=== PATIENT | female | born 1995 | race Caucasian/White ===

== ENCOUNTER 2017-03-04 15:02 | Inpatient (IN) | payer MEDICAID, OTHER ==
[~2017-03-04] VITALS: Ht 165.1 cm; Wt 159.0 kg
[2017-03-04 16:39] LABS: MEAN CORPUSCULAR HEMOGLOBIN 30.4 pg (27.0-33.0); RED CELL DISTRIBUTION WIDTH 13.1 % (11.5-14.5)
[2017-03-04 16:47] LABS: CONTROL LINE HCG INT CTR LINE PRESENT
[2017-03-04 16:57] LABS: METHADONE URINE NEGATIVE (NEGATIVE)
[2017-03-04 17:05] LABS: ALBUMIN/GLOBULIN RATIO 1.18 (1.00-1.93); ALKALINE PHOSPHATASE 114 U/L (45-117); ALT/SGPT 23 U/L (12-78); ANION GAP 8 MEQ/L (8-16); AST/SGOT 19 U/L (15-37); BILIRUBIN,DIRECT 0.1 MG/DL (0.0-0.2); BILIRUBIN,TOTAL 0.3 MG/DL (0.2-1.0); BLOOD UREA NITROGEN 13 MG/DL (7-18); CALCIUM LEVEL 8.8 MG/DL (8.5-10.1); CARBON DIOXIDE LEVEL 27 MEQ/L (21-32); CHLORIDE LEVEL 106 MEQ/L (98-107); CREATININE FOR GFR 0.98 MG/DL (0.55-1.02); GLUCOSE, FASTING 90 MG/DL (70-105); POTASSIUM SERUM 3.7 MEQ/L (3.5-5.1); SODIUM LEVEL 141 MEQ/L (136-145); TOTAL PROTEIN 7.4 GM/DL (6.4-8.2)
[2017-03-04 21:05] VITALS: BP 131/67
[2017-03-04] MEDS ORDERED: MAALOX 30 ML SUSP *UDC PO PRN (23:45)
[2017-03-04] MEDS ORDERED: MOM 30ML SUSPENSION UDC PO PRN (23:45)
[2017-03-04] MEDS ORDERED: ACETAMINOPHEN TAB 650MG DOSE (2X325MG) PO PRN (23:45)
[2017-03-05 06:40] VITALS: BP 123/74
[2017-03-05] MEDS: NICOTINE 21MG/24HR 1 EA TRANSDERMAL TD SCH (09:00)
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
[2017-03-05 18:00] VITALS: BP 110/74
[2017-03-05] MEDS: traZODone 50 MG TAB PO SCH (21:22)
[2017-03-06 06:42] VITALS: BP 139/79
[2017-03-06] MEDS: NICOTINE 21MG/24HR 1 EA TRANSDERMAL TD SCH (08:13)
[2017-03-06] MEDS: FLUoxetine 20 MG CAP PO SCH (08:15)
--- NOTE | 2017-03-06 10:54 | HPEPDOC ---
Medical History and Physical Date of Admission Mar 04, 2017 at 19:16 History and Physical PCP: [facility] ATTENDING: Dr. Mark Ortez HPI: 21yoF admitted to [facility] for unspecified depressive disorder, being medically examined today. No acute medical complaints today. Denies any fevers, chills, weakness, fatigue, CASPER, CP, SOB, cough, palpitations, abdominal pain, N/V /D or changes in bowel or bladder habits. PMHx: Depression ADD Chronic back pain/degenerative disc disease PCOS BMI 58.3 PSHX: Denies SOCHX: Resides in: [facility] Marital Status: Single Kids: None Employment: Unemployed Tobacco use: One half pack per day ETOH: One bottle of wine every 8 months Illicit Drugs: Marijuana 1 or 2 times IV Drug Use: Denies Tattoos done unprofessionally: Denies FAMHX: Mother: Alive, history of depression, bipolar disorder, PCOS Father: Alive, bipolar, depression Siblings: One sister, half brother Alive, bipolar disorder, PTSD, OCD, ADD Children: None Unexpected deaths due to medical reasons: None. ROS: As noted in HPI, otherwise 11pt ROS of systems reviewed and remarkable only for LMP 4/04/10 PE: GEN: 21 yo F, appears stated age. Well-nourished, well developed. No acute distress. Alert and oriented x 3. Pleasant, interactive. HEENT: Normocephalic, atraumatic. Pupils are equal, round, and reactive to light. Extraocular movements are intact. No nystagmus appreciated. Sclera are nonicteric. Conjunctiva without injection. Nose midline. Nasal turbinates without bogginess. EACs both patent BL. TMs both visualized and rivera with good cone of light, no bulging or erythema. No facial asymmetry. Moist mucous membranes. Dentition fair. Pharynx pink and moist, no cobblestoning. Neck supple , trachea midline. No lymphadenopathy or thyromegaly appreciated. CHEST: Regular rate and rhythm, +S1, +S2 LUNGS: Clear to auscultation bilaterally. No wheezes, rales, or rhonchi. Breathing appears symmetric and easy. Patient is speaking in full sentences. No accessory muscle use. ABD: Round, soft, non-tender, non-distended. +Bowel sounds throughout. No rebound or guarding. No costovertebral angle tenderness. EXT: Pulses 2+ bilaterally dorsalis pedis and radial. No lower extremity edema appreciated. SKIN: [place], dry, warm. Capillary refill <2sec. No rashes. NEURO: Alert and oriented x 3. Cranial nerves III-XII are intact. No focal deficits appreciated. EKG: Pending. A&P: 21yoF admitted to [facility] for unspecified depressive disorder 1. Psych. Plan per Psychiatry. Obtain baseline EKG to assure the safety of psychiatric medications as they can prolong the QT interval. 2. Nicotine dependence. Patch available. 3. Chronic low back pain. Tylenol as needed. 4. Follow up with PCP on discharge. 5. Staff member Romina LUO present throughout exam. Vital Signs Vital Signs Date Time Temp Pulse Resp B/P Pulse Ox O2 Delivery O2 Flow Rate FiO2 03/06/17 06:42 98.1 48 20 139/79 03/04/17 21:05 Room Air 03/04/17 21:05 98 Laboratory Data Labs 24H Item Value Date Time White Blood Count 9.0 K/mm3 03/04/17 1601 Red Blood Count 4.47 M/mm3 03/04/17 1601 Hemoglobin 13.6 g/dl 03/04/17 1601 Hematocrit 41.1 % 03/04/17 1601 Mean Corpuscular Volume 92.0 fl 03/04/17 1601 Mean Corpuscular Hemoglobin 30.4 pg 03/04/17 1601 Mean Corpuscular Hemoglobin Concent 33.0 g/dl 03/04/17 1601 Red Cell Distribution Width 13.1 % 03/04/17 1601 Platelet Count 319 k/mm3 03/04/17 1601 Sodium Level 141 MEQ/L 03/04/17 1601 Potassium Level 3.7 MEQ/L 03/04/17 1601 Chloride Level 106 MEQ/L 03/04/17 1601 Carbon Dioxide Level 27 MEQ/L 03/04/17 1601 Anion Gap 8 MEQ/L 03/04/17 1601 Blood Urea Nitrogen 13 MG/DL 03/04/17 1601 Creatinine 0.98 MG/DL 03/04/17 1601 Fasting Glucose 90 MG/DL 03/04/17 1601 Calcium Level 8.8 MG/DL 03/04/17 1601 Total Bilirubin 0.3 MG/DL 03/04/17 1601 Direct Bilirubin 0.1 MG/DL 03/04/17 1601 Aspartate Amino Transf (AST/SGOT) 19 U/L 03/04/17 1601 Alanine Aminotransferase (ALT/SGPT) 23 U/L 03/04/17 1601 Alkaline Phosphatase 114 U/L 03/04/17 1601 Total Protein 7.4 GM/DL 03/04/17 1601 Albumin 4.0 GM/DL 03/04/17 1601 Albumin/Globulin Ratio 1.18 03/04/17 1601 Thyroid Stimulating Hormone (TSH) 2.590 uIU/ML 03/04/17 1601 Human Chorionic Gonadotropin, Qual NEGATIVE 03/04/17 1601 Salicylates Level 2.3 MG/DL L 03/04/17 1601 Urine Opiates Screen NEGATIVE 03/04/17 1601 Urine Methadone Screen NEGATIVE 03/04/17 1601 Acetaminophen Level < 2.0 UG/ML L 03/04/17 1601 Urine Barbiturates Screen NEGATIVE 03/04/17 1601 Urine Phencyclidine Screen NEGATIVE 03/04/17 1601 Urine Amphetamines Screen NEGATIVE 03/04/17 1601 Urine Benzodiazepines Screen NEGATIVE 03/04/17 1601 Urine Cocaine Metabolite Screen NEGATIVE 03/04/17 1601 Urine Cannabinoids Screen POSITIVE H 03/04/17 1601 Ethyl Alcohol Level < 0.003 % 03/04/17 1601 Home Medications No Active Prescriptions or Reported Meds Allergies Coded Allergies: Latex (Verified Allergy, Unknown, 03/04/17) [place] Mar 06, 2017 10:54
--- NOTE | 2017-03-06 19:53 | IPNPDOC ---
[facility] Progress Note Progress Note DATE OF SERVICE: 03/06/17 INTERVAL HISTORY: Medication Side effects: None reported Behavior: She is being interacting with other patients and staff, compliant with medications and attendance to groups, she hasn't been disruptive neither aggressive. Group Attendance: Has been attending meditation and yoga groups Psychiatric Symptom change: Her mood and affect have improved VITAL SIGNS: See below. NEW TEST RESULTS: See below CURRENT MEDICATIONS: See below. MENTAL STATUS EXAMINATION: General: Dressed in personal clothes, good eye contact, good rapport Speech: Normal Thought processes:Linear, coherent Thought content: Occasional suicidal ideation ,negative for delusional thoughts , negative for auditory or visual hallucinations, negative for obsessions Abstract reasoning, and computation: Fair Description of associations:No loosening of associations Description of abnormal or psychotic thoughts: No delusional thoughts, no hallucinations no response to internal stimuli and no thought insertion Judgment: Improving Insight: Improving Orientation: Oriented 3 Recent and remote memory: Intact Attention span and concentration: Fair Fund of knowledge: Fair Mood: "I feel much better, I couldn't sleep last night" Affect: Less depressed and anxious DIAGNOSES: 1. Major depressive disorder, chronic, severe with suicidal ideation. 2. PTSD. 3. Borderline personality disorder. ASSESSMENT: The patient was in a brighter mood today, and she said that her sleep had improved and was happy about that because she is aware that the lack of sleep makes her irritable and depressed. She feels that she is doing better now that she has started taking her medications. She is goal oriented and she wants to get better. MANAGEMENT PLAN: Medications: Prozac 20 mg by mouth daily and trazodone 50 mg by mouth when necessary daily at bedtime Psychotherapy: She is attending groups and receiving psychotherapy Social: Interacting with staff and other patients, once she gets stabilized she will be discharged and we have will be able to go back to her family. Misc: Motivated and engaged in her treatment Disposition: Inpatient mental health unit while she becomes stable TIME SPENT: 15 minutes. Vital Signs Vital Signs Date Time Temp Pulse Resp B/P Pulse Ox O2 Delivery O2 Flow Rate FiO2 03/06/17 06:42 98.1 48 20 139/79 03/04/17 21:05 Room Air 03/04/17 21:05 98 Current Medications Current Medications Acetaminophen (Tylenol Tab) 650 mg Q6HP PRN PO HEADACHE or DISCOMFORT; Start at 23:45; Stop 04/03/17 at 23:44 Al Hydrox/Mg Hydrox/Simethicone (Mylanta) 30 ml Q4HP PRN PO HEARTBURN/ INDIGESTION; Start 03/04/17 at 23:45; Stop 04/03/17 at 23:44 Fluoxetine HCl (PROzac) 20 mg QAM PO Last administered on 03/06/17t 08:15; Start 03/06/17 at 09:00; Stop 04/05/17 at 08:59 Home Med (Med Rec Complete!) ASDIRECTED XX ; Start 03/04/17 at 20:00; Stop 09/10 at 20:00; Status DC Magnesium Hydroxide (Milk Of Magnesia) 30 ml DAILYPRN PRN PO CONSTIPATION; Start 03/04/17 at 23:45; Stop 04/03/17 at 23:44 Nicotine (Nicoderm Cq 21mg) 1 patch DAILY TD ; Start 03/05/17 at 09:00; Stop 10/11 at 08:59 Trazodone HCl (Desyrel) 50 mg QHS PO Last administered on 03/05/17t 21:22; Start 03/05/17 at 21:00; Stop 04/04/17 at 20:59 Allergies Coded Allergies: Latex (Verified Allergy, Unknown, 03/04/17) JOSÉ LUIS BARBER MD Mar 06, 2017 19:53
[2017-03-06] MEDS: traZODone 50 MG TAB PO SCH (21:38)
[2017-03-07 06:32] VITALS: BP 134/76
[2017-03-07] MEDS: NICOTINE 21MG/24HR 1 EA TRANSDERMAL TD SCH (08:07)
[2017-03-07] MEDS: FLUoxetine 20 MG CAP PO SCH (08:07)
--- NOTE | 2017-03-07 12:44 | ECGEPIP ---
Stationary ECG Study [facility] Test Date: 2017-03-06 Pat Name: CORY SARABIA Department: Room: [place] [address] Gender: F Criminal Analyst: EMILIE : 1995 Requested By: [place] Order Number: [id number] Reading MD: Bairon Shelley Measurements Intervals [place] Rate: 60 P: 23 NH: 137 QRS: 61 QRSD: 98 T: 36 QT: 389 QTc: 390 Interpretive Statements SINUS RHYTHM Normal Electronically Signed On 03-07-2017 12:44:28 EDT by Bairon Shelley
--- NOTE | 2017-03-07 16:49 | IPNPDOC ---
[facility] Progress Note Progress Note INTERVAL HISTORY: Medication Side effects: No negative side effects have been reported Behavior: Good attitude, cooperative, friendly, sociable Group Attendance: Has been attending groups regularly Psychiatric Symptom change: Her mood and affect are brighter, less depressed. She has been able to sleep 8-9 hours. VITAL SIGNS: See below. NEW TEST RESULTS: See below CURRENT MEDICATIONS: See below. MENTAL STATUS EXAMINATION: General: Alert, cooperative, good eye contact, good rapport, good hygiene Speech: Normal, not circumstantial, no tangential Thought processes: Normal, linear, coherent Thought content: Negative for suicidal ideation, homicidal ideation, delusional thoughts, hallucinations, obsessions Abstract reasoning, and computation: Fair Description of associations: No loosening of associations Description of abnormal or psychotic thoughts: Absent Judgment: Improving Insight: Improving Orientation: Oriented 3 Recent and remote memory: Intact Attention span and concentration: Fair Fund of knowledge: Fair Mood: I feel much better and I was able to sleep Affect: Less depressed and anxious DIAGNOSES: 1. Major depressive disorder, moderate without suicidal ideation. 2. Posttraumatic stress disorder. 3. And borderline personality. ASSESSMENT: The patient is motivated and she has improved since her admission. She is goal oriented and has plans for the future. She will be able to be discharged home by the end of the week. MANAGEMENT PLAN: Medications: Prozac 20 mg by mouth every morning and trazodone 50 mg by mouth daily at bedtime Psychotherapy: Accidents groups regularly Social: She will live with her family and will be in touch with friends. Misc: None Disposition: Patient will be discharged home to her family if they're able to have a meeting with the discharge planners and they have. Patient is stable, not suicidal, not psychotic, not homicidal. TIME SPENT: 15 minutes.DATE OF SERVICE: VITAL SIGNS: See below. Vital Signs Vital Signs Date Time Temp Pulse Resp B/P Pulse Ox O2 Delivery O2 Flow Rate FiO2 03/07/17 06:32 98.2 98 18 134/76 Room Air 03/04/17 21:05 98 Current Medications Current Medications Acetaminophen (Tylenol Tab) 650 mg Q6HP PRN PO HEADACHE or DISCOMFORT; Start at 23:45; Stop 04/03/17 at 23:44 Al Hydrox/Mg Hydrox/Simethicone (Mylanta) 30 ml Q4HP PRN PO HEARTBURN/ INDIGESTION; Start 03/04/17 at 23:45; Stop 04/03/17 at 23:44 Fluoxetine HCl (PROzac) 20 mg QAM PO Last administered on 03/07/17 08:07; Start 03/06/17 at 09:00; Stop 04/05/17 at 08:59 Home Med (Med Rec Complete!) ASDIRECTED XX ; Start 03/04/17 at 20:00; Stop 09/10 at 20:00; Status DC Magnesium Hydroxide (Milk Of Magnesia) 30 ml DAILYPRN PRN PO CONSTIPATION; Start 03/04/17 at 23:45; Stop 04/03/17 at 23:44 Nicotine (Nicoderm Cq 21mg) 1 patch DAILY TD ; Start 03/05/17 at 09:00; Stop 10/11 at 08:59 Trazodone HCl (Desyrel) 50 mg QHS PO Last administered on 03/06/17 21:38; Start 03/05/17 at 21:00; Stop 04/04/17 at 20:59 Allergies Coded Allergies: Latex (Verified Allergy, Unknown, 03/04/17) JOSÉ LUIS BARBER MD Mar 07, 2017 16:49
[2017-03-07 18:00] VITALS: BP 146/88
[2017-03-07] MEDS: traZODone 50 MG TAB PO SCH (22:17)
[2017-03-08 05:55] VITALS: BP 134/69
[2017-03-08] MEDS: FLUoxetine 20 MG CAP PO SCH (08:06)
[2017-03-08] MEDS: NICOTINE 21MG/24HR 1 EA TRANSDERMAL TD SCH (08:07)
[2017-03-08] MEDS ORDERED: TRAZO50TA PO (09:31)
[2017-03-08] MEDS ORDERED: FLUO20CA9 PO (09:31)
--- NOTE | 2017-03-08 09:47 | DS.PDOC ---
[facility] Discharge Summary Discharge Summary DATE OF ADMISSION: Mar 04, 2017 at 19:16 DATE OF DISCHARGE: DISCHARGE DIAGNOSES: 1. Major depressive disorder unspecified, without suicidal ideation 2. PTSD 3. Borderline personality disorder. REASON FOR ADMISSION: The patient states that she has been out of medication for 4 months and that she felt increasingly depressed, unable to sleep well, sad , tearful, with low levels of energy, lack of interest, anhedonia difficulties concentrating, psychomotor retardation and suicidal ideation. She was at risk for suicide, she has tried to kill herself before in the last time she tried to jump off a bridge, she stated this was the thought that was on her mind, jumping off a bridge if she continued to feel very depressed.. CONSULTANTS INVOLVED: None TREATMENT AND PROGRESS ON THE UNIT :, Has been treated with 20 mg of fluoxetine every day since she was admitted for depression and she has been taking trazodone 50 mg at bedtime for insomnia. She has improved recently on those medications and now she states that she can sleep better and feels better, because she feels calmer, has more energy, has more interest in mingling with people, socializing and she feels that her mind is getting clear and she is able to focus and concentrate better. She has denies suicidal ideation and has denied having thoughts of hurting herself in any other possible weight, like cutting. HOSPITAL COURSE: She has responded to medications fairly well, she has attended groups especially the medication and a yoga group but she also has attended process groups. She is very interested and motivated in getting better and overcoming her psychiatric problems. She states that she wants to go back to school, she is goal oriented and has plans for her future. She has been seen in a brighter mood, she is more sociable and she is able to verbalize quite clearly her emotions. DISCHARGE ASSESSMENT: She is stable upon discharge, she is not at risk for suicide or harming herself in any other possible way. She has no delusions, no hallucinations no obsessions and no aggressiveness towards others. MENTAL STATUS EXAMINATION ON DISCHARGE: Patient is a 21-year old female, who is alert, cooperative with interview, with good eye contact and will report. Speech is normal. Language skills are fair. Thought processes including: Linear, coherent, logical. Thought content: Negative for suicidal ideation, negative for homicidal ideation , negative for delusional thoughts, hallucinations and obsessions. She doesn't have a suicidal plan not homicidal at the time of the discharge. Abstract reasoning, and computation: Fairly good. Description of associations: There is no loosening of associations. Description of abnormal or psychotic thoughts: There is no psychotic thoughts present. Judgment: Improved. Insight: Improved. Orientation to oriented 3. Recent and remote memory: Intact. Attention span and concentration: Good. Language: Fluid, well structured with fairly good vocabulary. Fund of knowledge: Good. Mood: "I feel much better, I've been able to sleep and I feel that I'm less depressed". Affect: Brighter. MEDICATIONS ON DISCHARGE: -Prozac 20 mg for depression and anxiety. -Trazodone 50 mg for insomnia PLAN/FOLLOWUP ARRANGEMENTS: The patient will go back to her family where she will be taken to an outpatient treatment center where she will continue to receive psychotherapy and psychiatric medications. The amount of time spent in the coordination of care for this patient was approximately 40 minutes Vital Signs/I&Os Vital Signs Date Time Temp Pulse Resp B/P Pulse Ox O2 Delivery O2 Flow Rate FiO2 03/08/17 05:55 97.2 70 18 134/69 Room Air 03/04/17 21:05 98 Medications Scheduled Fluoxetine Hcl (Fluoxetine HCl) 20 Mg Cap #10 20 MG PO QAM MOOD Trazodone HCl (Trazodone HCl) 50 Mg Tab #10 50 MG PO QHS ANXIETY/AGITATION Allergies Coded Allergies: Latex (Verified Allergy, Unknown, 03/04/17) JOSÉ LUIS BARBER MD Mar 08, 2017 09:47
[2017-03-08] MEDS ORDERED: NICO21PAT TD (09:51)
== END 2017-03-08 12:00 | disposition home or self-care (01) | DRG 881 ==
LOC: M ED 16:22 → M ED INP 19:16 → M PSY 21:12
PROVIDERS: ADMIT Psychiatry & Neurology Psychiatry; ATTEND Psychiatry & Neurology Psychiatry
DX: F32.9 Major depressive disorder, single episode, unspecified (principal); F43.10 Post-traumatic stress disorder, unspecified; F60.3 Borderline personality disorder; Z62.810 Personal history of physical and sexual abuse in childhood; Z62.811 Personal history of psychological abuse in childhood; Z91.040 Latex allergy status; F17.210 Nicotine dependence, cigarettes, uncomplicated; M54.5 Low back pain; E28.2 Polycystic ovarian syndrome; Z91.5 Personal history of self-harm; Z81.8 Family history of other mental and behavioral disorders

== ENCOUNTER → 2017-12-27 | Outpatient (CLI) | payer OTHER ==
[2017-12-27 13:47] LABS: BASO # 0.1 10^3/uL (0.0-0.2); BASO % 0.5 % (0.0-1.0); EOS # 0.1 10^3/uL (0.0-0.50); EOS % 1.2 % (0.0-3.0); HEMATOCRIT 42.4 % (36.0-47.0); HEMOGLOBIN 14.3 g/dl (12.0-16.0); IMMATURE GRANULOCYTE # 0.1 10^3/uL (0-0); IMMATURE GRANULOCYTE % 0.4 % (0-0); LYMPH # 2.4 10^3/uL (1.5-6.5); LYMPH % 19.7 % (24.0-44.0); MEAN CORPUSCULAR HEMOGLOBIN 29.9 pg (27.0-33.0); MEAN CORPUSCULAR HGB CONC 33.7 g/dl (32.0-36.5); MEAN CORPUSCULAR VOLUME 88.7 fl (80.0-96.0); MONO # 0.8 10^3/uL (0.0-0.8); MONO % 6.6 % (0.0-5.0); NEUTROPHILS # 8.6 10^3/uL (1.8-7.7); NEUTROPHILS % 71.6 % (36.0-66.0); PLATELET COUNT, AUTOMATED 338 10^3/uL (150-450); RED BLOOD COUNT 4.78 10^6/uL (4.00-5.40); RED CELL DISTRIBUTION WIDTH 13.4 % (11.5-14.5)
[2017-12-27 14:55] LABS: RUBELLA IgG QUALITATIVE IMMUNE (IMMUNE)
[2017-12-27 15:03] LABS: HBsAg Prenatal NEGATIVE (NEGATIVE)
[2017-12-27 15:21] LABS: CHLAMYDIA DNA AMPLIFICATION NEGATIVE (NEGATIVE); GC DNA AMPLIFICATION NEGATIVE (NEGATIVE)
[2017-12-27 15:23] LABS: HEPATITIS C VIRUS ABY INDEX < 0.0 INDEX (<0.8)
[2017-12-27 15:24] LABS: HIV 1&2 SCREEN CENTAUR NEGATIVE (NEGATIVE)
== END ==
LOC: M SMT 11:57
DX: Z34.82 Encounter for supervision of other normal pregnancy, second trimester (principal)
CPT/HCPCS: 86762

== ENCOUNTER → 2018-02-04 | Outpatient (CLI) | payer MEDICAID ==
[2018-02-04 19:17] LABS: HEMATOCRIT 37.3 % (36.0-47.0); HEMOGLOBIN 12.4 g/dl (12.0-16.0); MEAN CORPUSCULAR HGB CONC 33.2 g/dl (32.0-36.5); MEAN CORPUSCULAR VOLUME 90.1 fl (80.0-96.0); PLATELET COUNT, AUTOMATED 323 10^3/uL (150-450); RED BLOOD COUNT 4.14 10^6/uL (4.00-5.40); RED CELL DISTRIBUTION WIDTH 14.2 % (11.5-14.5); WHITE BLOOD COUNT 9.9 10^3/uL (4.0-10.0)
[2018-02-04 19:49] LABS: ALBUMIN 3.1 GM/DL (3.2-5.2); ALBUMIN/GLOBULIN RATIO 0.94 (1.00-1.93); ALKALINE PHOSPHATASE 98 U/L (45-117); ALT/SGPT 61 U/L (12-78); ANION GAP 9 MEQ/L (8-16); AST/SGOT 31 U/L (7-37); BILIRUBIN,TOTAL 0.2 MG/DL (0.2-1.0); BLOOD UREA NITROGEN 8 MG/DL (7-18); CALCIUM LEVEL 8.3 MG/DL (8.5-10.1); CARBON DIOXIDE LEVEL 25 MEQ/L (21-32); CHLORIDE LEVEL 107 MEQ/L (98-107); CREATININE FOR GFR 0.63 MG/DL (0.55-1.30); FREE THYROXINE INDEX 4.2 % (1.3-4.8); GLUCOSE, FASTING 68 MG/DL (70-100); POTASSIUM SERUM 3.9 MEQ/L (3.5-5.1); SODIUM LEVEL 141 MEQ/L (136-145); T UPTAKE 25 % (30-39); THYROXINE (T4) 16.6 UG/DL (6.0-11.6); TOTAL PROTEIN 6.4 GM/DL (6.4-8.2)
[2018-02-04 22:01] LABS: CHLAMYDIA DNA AMPLIFICATION NEGATIVE (NEGATIVE); GC DNA AMPLIFICATION NEGATIVE (NEGATIVE)
== END ==
LOC: M SMT 14:55
DX: R53.83 Other fatigue (principal)
CPT/HCPCS: 84443

== ENCOUNTER 2018-03-29 02:23 | Outpatient (CLI) | payer OTHER | END 2018-03-29 05:23 | disposition home or self-care (01) | LOC: M LDO 02:23 | DX: O47.03 False labor before 37 completed weeks of gestation, third trimester (principal); Z3A.27 27 weeks gestation of pregnancy | CPT/HCPCS: 59025 ==

== ENCOUNTER → 2018-04-08 | Outpatient (CLI) | payer OTHER ==
[2018-04-08 17:57] LABS: HEMATOCRIT 34.8 % (36.0-47.0); HEMOGLOBIN 11.3 g/dl (12.0-15.5); MEAN CORPUSCULAR HEMOGLOBIN 30.4 pg (27.0-33.0); MEAN CORPUSCULAR HGB CONC 32.5 g/dl (32.0-36.5); MEAN CORPUSCULAR VOLUME 93.5 fl (80.0-96.0); PLATELET COUNT, AUTOMATED 302 10^3/uL (150-450); RED BLOOD COUNT 3.72 10^6/uL (4.00-5.40); RED CELL DISTRIBUTION WIDTH 13.6 % (11.5-14.5); WHITE BLOOD COUNT 14.5 10^3/uL (4.0-10.0)
[2018-04-08 18:28] LABS: GLUCOSE CHALLENGE TEST 1 HOUR 96 MG/DL (LESS THAN 140)
== END ==
LOC: M SMT 13:30
DX: Z34.82 Encounter for supervision of other normal pregnancy, second trimester (principal)
CPT/HCPCS: 82950

== ENCOUNTER 2018-04-16 16:27 | Outpatient (CLI) | payer OTHER | END 2018-04-16 19:20 | disposition home or self-care (01) | LOC: M LDO 16:27 | DX: O47.03 False labor before 37 completed weeks of gestation, third trimester (principal); Z3A.30 30 weeks gestation of pregnancy | CPT/HCPCS: 76815 ==

== ENCOUNTER → 2018-06-17 | Outpatient (REF) | payer OTHER | LOC: M LAB REF 13:06 | DX: Z34.83 Encounter for supervision of other normal pregnancy, third trimester (principal); Z3A.00 Weeks of gestation of pregnancy not specified | CPT/HCPCS: 87081 ==

== ENCOUNTER 2018-07-05 17:02 | Inpatient (IN) | payer OTHER ==
[2018-07-05] MEDS: LR 1,000 ML IV (20:05)
[2018-07-05 20:16] LABS: HEMATOCRIT 34.4 % (36.0-47.0); HEMOGLOBIN 11.5 g/dl (12.0-15.5); MEAN CORPUSCULAR HEMOGLOBIN 29.4 pg (27.0-33.0); MEAN CORPUSCULAR HGB CONC 33.4 g/dl (32.0-36.5); PLATELET COUNT, AUTOMATED 302 10^3/uL (150-450); RED BLOOD COUNT 3.91 10^6/uL (4.00-5.40); RED CELL DISTRIBUTION WIDTH 14.6 % (11.5-14.5)
[2018-07-05] MEDS: OXYTOCIN DRIP 30 UNITS in APPROPRIATE DILUENT 1 EA IV (21:17)
[2018-07-05 22:21] LABS: AMPHETAMINES URINE REFLEX NEGATIVE (NEGATIVE); BARBITURATES URINE REFLEX NEGATIVE (NEGATIVE); BENZODIAZEPINES URINE REFLEX NEGATIVE (NEGATIVE); CANNABINOIDS URINE REFLEX NEGATIVE (NEGATIVE); COCAINE METABOLITE URINE REFLE NEGATIVE (NEGATIVE); METHADONE URINE REFLEX NEGATIVE (NEGATIVE); OPIATES URINE REFLEX NEGATIVE (NEGATIVE); PHENCYCLIDINE URINE REFLEX NEGATIVE (NEGATIVE)
[2018-07-06] MEDS: BUTORPHANOL 2 MG/ML INJ (J0595) IV (01:06)
[2018-07-06] MEDS: PROMETHAZINE INJ 25 MG/ML VIAL (J2550) IV (01:07)
[2018-07-06] MEDS: LR 1,000 ML IV (10:30)
[2018-07-06] MEDS ORDERED: DOCUSATE SODIUM 100 MG CAP PO (12:00)
[2018-07-06] MEDS ORDERED: ONDANSETRON 4MG/2ML VIAL (J2405) IV (12:00)
[2018-07-06] MEDS ORDERED: ACETAMINOPHEN 500 MG TAB PO (12:00)
[2018-07-06] MEDS: OXYTOCIN DRIP 30 UNITS in APPROPRIATE DILUENT 1 EA IV (12:00)
[2018-07-06] MEDS ORDERED: DIBUCAINE 1% OINTMENT 30GM TOP (12:00)
[2018-07-06] MEDS ORDERED: METHYLERGONOVINE MALEATE 0.2 MG TAB PO (12:00)
[2018-07-06] MEDS: LIDOCAINE 1% MDV 20ML VIAL INFIL (12:00)
[2018-07-07] MEDS: IBUPROFEN 800 MG TAB PO (04:14)
[2018-07-07] MEDS: PRENATAL VITAMINS CHEWABLE TABLET PO (07:28)
[2018-07-07] MEDS: MEASLES,MUMPS,RUBELLA VACCINE INJ (MMR-II) (90707) SC (10:21)
[2018-07-07] MEDS: RHOGAM 300 MCG (1500 IU) INJ (J2790) IM (10:21)
[2018-07-08] MEDS: PRENATAL VITAMINS CHEWABLE TABLET PO (08:15)
== END 2018-07-08 09:42 | disposition home or self-care (01) | DRG 560 ==
LOC: M LDO 17:02 → M OBS 07-06 14:13 → M LDI 17:57
PROVIDERS: Specialist
PROC: 10E0XZZ Delivery of Products of Conception, External Approach (ICD-10-PCS; principal; 2018-07-06)
PROC: 0KQM0ZZ Repair Perineum Muscle, Open Approach (ICD-10-PCS; 2018-07-06)
DX: O48.0 Post-term pregnancy (principal); O99.344 Other mental disorders complicating childbirth; F32.9 Major depressive disorder, single episode, unspecified; Z37.0 Single live birth; Z3A.41 41 weeks gestation of pregnancy; F41.9 Anxiety disorder, unspecified; F43.10 Post-traumatic stress disorder, unspecified; F42.9 Obsessive-compulsive disorder, unspecified; F90.9 Attention-deficit hyperactivity disorder, unspecified type; F52.8 Other sexual dysfunction not due to a substance or known physiological condition; Z91.040 Latex allergy status; F17.210 Nicotine dependence, cigarettes, uncomplicated; O70.1 Second degree perineal laceration during delivery; O99.334 Smoking (tobacco) complicating childbirth

== ENCOUNTER 2018-07-10 16:12 | Emergency (ER) | payer OTHER ==
[2018-07-10 19:55] LABS: BASO # 0.1 10^3/uL (0.0-0.2); BASO % 0.3 % (0.0-1.0); EOS # 0.4 10^3/uL (0.0-0.50); EOS % 2.4 % (0.0-3.0); HEMATOCRIT 26.4 % (36.0-47.0); HEMOGLOBIN 8.5 g/dl (12.0-15.5); IMMATURE GRANULOCYTE % 0.7 % (0-3.0); LYMPH # 2.2 10^3/uL (1.5-6.5); LYMPH % 13.7 % (24.0-44.0); MEAN CORPUSCULAR HEMOGLOBIN 29.7 pg (27.0-33.0); MEAN CORPUSCULAR HGB CONC 32.2 g/dl (32.0-36.5); MEAN CORPUSCULAR VOLUME 92.3 fl (80.0-96.0); MONO # 0.8 10^3/uL (0.0-0.8); MONO % 4.7 % (0.0-5.0); NEUTROPHILS # 12.8 10^3/uL (1.8-7.7); NEUTROPHILS % 78.2 % (36.0-66.0); PLATELET COUNT, AUTOMATED 395 10^3/uL (150-450); RED BLOOD COUNT 2.86 10^6/uL (4.00-5.40); RED CELL DISTRIBUTION WIDTH 14.9 % (11.5-14.5); WHITE BLOOD COUNT 16.3 10^3/uL (4.0-10.0)
[2018-07-10] MEDS: IBUPROFEN 800 MG TAB PO (20:10)
[2018-07-10] MEDS: ACETAMINOPHEN 325 MG TAB PO (20:10)
[2018-07-10] MEDS: NS 1,000 ML IV ×2 (20:10→20:45)
[2018-07-10 20:15] LABS: ANION GAP 8 MEQ/L (8-16); BLOOD UREA NITROGEN 12 MG/DL (7-18); CALCIUM LEVEL 8.4 MG/DL (8.5-10.1); CARBON DIOXIDE LEVEL 27 MEQ/L (21-32); CHLORIDE LEVEL 110 MEQ/L (98-107); CREATININE FOR GFR 0.89 MG/DL (0.55-1.30); GLUCOSE, FASTING 89 MG/DL (70-100); POTASSIUM SERUM 4.6 MEQ/L (3.5-5.1); SODIUM LEVEL 145 MEQ/L (136-145)
[2018-07-10 20:18] LABS: LACTIC ACID SEPSIS PROTOCOL 1.6 MMOL/L (0.4-2.0)
[2018-07-10 21:28] LABS: KETONE, URINE AUTO RFX NEGATIVE (NEGATIVE); MUCUS, URINE RFX SMALL (NEGATIVE); NITRITE, URINE AUTO RFX NEGATIVE (NEGATIVE); RBC, URINE AUTO RFX 57 /HPF (0-3); SQUAM EPITHELIAL CELL UR AURFX 0 /HPF (0-6)
[2018-07-10 21:29] LABS: LEUKOCYTE ESTERASE UR AUTO RFX 2+ (NEGATIVE); WBC, URINE AUTO RFX 30 /HPF (0-3)
[2018-07-10 22:36] LABS: ALT/SGPT 29 U/L (12-78); AST/SGOT 26 U/L (7-37); BILIRUBIN,TOTAL 0.2 MG/DL (0.2-1.0); LDH LACTATE DEHYDROGENASE 266 U/L (84-246); URIC ACID 8.1 MG/DL (2.6-6.0)
[2018-07-10 22:49] LABS: TOTAL PROTEIN,RANDOM URINE 14.8 MG/DL (0.0-12.0)
[2018-07-10] MEDS: NITROFURANTOIN (MACROBID) 100 MG CAP PO (23:30)
== END 2018-07-11 00:01 | disposition home or self-care (01) ==
LOC: M ED 07-11 00:01
DX: O86.20 Urinary tract infection following delivery, unspecified (principal); O90.81 Anemia of the puerperium; O99.63 Diseases of the digestive system complicating the puerperium; K21.9 Gastro-esophageal reflux disease without esophagitis; O99.345 Other mental disorders complicating the puerperium; F31.9 Bipolar disorder, unspecified; F90.9 Attention-deficit hyperactivity disorder, unspecified type; F42.9 Obsessive-compulsive disorder, unspecified; F52.8 Other sexual dysfunction not due to a substance or known physiological condition; O99.335 Smoking (tobacco) complicating the puerperium; F17.200 Nicotine dependence, unspecified, uncomplicated; Z91.018 Allergy to other foods; Z91.040 Latex allergy status
CPT/HCPCS: 76856

== ENCOUNTER 2019-09-09 20:01 | Emergency (ER) | payer MEDICAID, OTHER, SELFPAY ==
[~2019-09-09] VITALS: Ht 167.6 cm; Wt 120.5 kg
[~2019-09-09 20:01] MED LIST: ACET500T15 PO; AMOX250C3 PO; COLA100C5 PO; FLUO20CA19 PO; MACR100C43 PO; MOTR200T44 PO; NICO21PAT TD; PRENCHW PO; TRAZ1TAB10 PO
[2019-09-09 21:23] LABS: BASO # 0.1 10^3/uL (0.0-0.2); BASO % 0.8 % (0.0-1.0); EOS # 0.3 10^3/uL (0.0-0.5); EOS % 3.9 % (0.0-3.0); HEMATOCRIT 42.4 % (36.0-47.0); HEMOGLOBIN 13.7 g/dl (12.0-15.5); LYMPH # 2.5 10^3/uL (1.5-5.0); LYMPH % 35.3 % (24.0-44.0); MEAN CORPUSCULAR HEMOGLOBIN 28.4 pg (27.0-33.0); MEAN CORPUSCULAR HGB CONC 32.3 g/dl (32.0-36.5); MEAN CORPUSCULAR VOLUME 87.8 fl (80.0-96.0); MONO # 0.5 10^3/uL (0.0-0.8); MONO % 7.2 % (0.0-5.0); NEUTROPHILS # 3.8 10^3/uL (1.5-8.5); NEUTROPHILS % 52.5 % (36.0-66.0); PLATELET COUNT, AUTOMATED 319 10^3/uL (150-450); RED BLOOD COUNT 4.83 10^6/uL (4.00-5.40); WHITE BLOOD COUNT 7.2 10^3/uL (4.0-10.0)
[2019-09-09 21:52] LABS: ALBUMIN 3.7 GM/DL (3.2-5.2); ALT/SGPT 24 U/L (12-78); BILIRUBIN,DIRECT 0.1 MG/DL (0.0-0.2); BILIRUBIN,TOTAL 0.6 MG/DL (0.2-1.0); BLOOD UREA NITROGEN 14 MG/DL (7-18); CALCIUM LEVEL 8.8 MG/DL (8.5-10.1); CARBON DIOXIDE LEVEL 26 MEQ/L (21-32); CHLORIDE LEVEL 108 MEQ/L (98-107); CREATININE FOR GFR 0.92 MG/DL (0.55-1.30); GLOMERULAR FILTRATION RATE > 60.0 (>60); GLUCOSE, FASTING 78 MG/DL (70-100); LIPASE 78 U/L (73-393); POTASSIUM SERUM 3.9 MEQ/L (3.5-5.1); SODIUM LEVEL 138 MEQ/L (136-145); TOTAL PROTEIN 7.1 GM/DL (6.4-8.2)
--- NOTE | 2019-09-09 23:09 | REPVR ---
PROCEDURE INFORMATION: Exam: US Pelvis Complete, Transabdominal Exam date and time: 09/09/2019 10:48 PM Clinical history: 24 years old, female; Pelvic pain; Additional info: Lower abd pain, suprapubic pain TECHNIQUE: Imaging protocol: Real-time transabdominal pelvic ultrasound with image documentation. Complete exam. COMPARISON: US PELVIC NON-OB COMPLETE 07/10/2018 7:47 PM FINDINGS: Uterus/cervix: The uterus measures 8.7 CM in length x 4.2 CM in AP dimension by 5.2 CM in transverse dimension and anteverted. There is an IUD within the endometrium. Right adnexa: The right ovary measures 2.7 CM in length by 1.6 CM in thickness and there is vascular flow of the right ovary with no evidence of torsion. Left adnexa: The left ovary measures 2.7 CM in length by 1.6 CM in thickness and there is vascular flow with no evidence of torsion. There is a small cyst at the left ovary. Free fluid: There is no evidence of free fluid within the pelvis. Bladder: Normal appearing urinary bladder. IMPRESSION: Small cyst left ovary. No evidence of torsion right or left ovary. Electronically signed by: Jeffrey Campbell On 09/09/2019 23:08:51 PM
[2019-09-10 00:05] VITALS: BP 129/68
== END 2019-09-10 00:08 | disposition home or self-care (01) ==
LOC: M ED 20:01
DX: N83.202 Unspecified ovarian cyst, left side (principal); K21.9 Gastro-esophageal reflux disease without esophagitis; Z91.018 Allergy to other foods; Z91.040 Latex allergy status

== ENCOUNTER → 2020-01-19 | Outpatient (CLI) | payer OTHER ==
[~2020-01-19] MED LIST changes: -FLUO20CA19 PO; +FLUO20CA22 PO
[2020-01-19 18:33] LABS: BASO # 0.1 10^3/uL (0.0-0.2); BASO % 0.9 % (0.0-1.0); EOS # 0.3 10^3/uL (0.0-0.5); EOS % 2.7 % (0.0-3.0); HEMATOCRIT 41.1 % (36.0-47.0); HEMOGLOBIN 13.4 g/dl (12.0-15.5); LYMPH # 2.6 10^3/uL (1.5-5.0); LYMPH % 23.8 % (24.0-44.0); MEAN CORPUSCULAR HEMOGLOBIN 29.3 pg (27.0-33.0); MEAN CORPUSCULAR HGB CONC 32.6 g/dl (32.0-36.5); MEAN CORPUSCULAR VOLUME 89.7 fl (80.0-96.0); MONO # 0.8 10^3/uL (0.0-0.8); MONO % 7.2 % (0.0-5.0); PLATELET COUNT, AUTOMATED 326 10^3/uL (150-450); RED BLOOD COUNT 4.58 10^6/uL (4.00-5.40); WHITE BLOOD COUNT 10.8 10^3/uL (4.0-10.0)
[2020-01-20 05:09] LABS: CHLAMYDIA DNA AMPLIFICATION POSITIVE (NEGATIVE); GC DNA AMPLIFICATION NEGATIVE (NEGATIVE)
[2020-01-20 12:04] LABS: HEPATITIS C VIRUS ABY INDEX < 0.0 INDEX (<0.8); HIV 1&2 SCREEN CENTAUR NEGATIVE (NEGATIVE); RUBELLA IgG QUALITATIVE IMMUNE (IMMUNE)
== END ==
LOC: M PLALAB 14:27
PROVIDERS: ATTEND Advanced Practice Midwife
DX: O99.341 Other mental disorders complicating pregnancy, first trimester (principal)

== ENCOUNTER → 2020-03-24 | Outpatient (REF) | payer OTHER, MEDICAID ==
[2020-03-24 20:02] LABS: CHLAMYDIA DNA AMPLIFICATION NEGATIVE (NEGATIVE); GC DNA AMPLIFICATION NEGATIVE (NEGATIVE)
== END ==
LOC: M PLALAB 11:37
PROVIDERS: ATTEND Advanced Practice Midwife
DX: O99.342 Other mental disorders complicating pregnancy, second trimester (principal); Z3A.00 Weeks of gestation of pregnancy not specified

== ENCOUNTER → 2020-04-01 | Outpatient (CLI) | payer OTHER ==
--- NOTE | 2020-04-01 14:53 | REP ---
OB ULTRASOUND: Real-time sonographic evaluation of the gravid uterus performed. There is a single living intrauterine gestation with an estimated gestational age 20 weeks 3 days with EDC 08/16/2020. Today's measurements indicate appropriate growth. Biometry and Growth: BPD 47 mm = 20 weeks 1 day, 43rd percentile HC 172 mm = 19 weeks 5 days, 30th percentile AC 152 mm = 20 weeks 3 days, 50th percentile FL 31 mm = 19 weeks 3 days, 26th percentile HC/AC ratio 1.13 within normal range of 1.06 to 1.24. Estimated weight 323 grams 32nd percentile. SEEN/GROSSLY UNREMARKABLE Lateral ventricles Yes Posterior fossa Yes Upper lip Yes Four-chamber heart No LVOT Yes RVOT No Stomach Yes Cord insertion Yes Three vessel cord Yes Kidneys Yes Bladder Yes Spine No Cervical length: Closed and measures 3.4 cm in length. heart rate: 150 beats per minute. position: Variable. Placenta: Anterior and grade 1 with no previa or abruption. Amniotic fluid: Within normal limits.
== END ==
LOC: M WHC 10:19
PROVIDERS: ATTEND Nurse Practitioner Women's Health
DX: O99.342 Other mental disorders complicating pregnancy, second trimester (principal); Z3A.14 14 weeks gestation of pregnancy

== ENCOUNTER → 2020-04-27 | Outpatient (CLI) | payer OTHER ==
--- NOTE | 2020-04-27 16:41 | REP ---
REASON FOR EXAM: Followup four-chamber heart, right ventricular outflow tract, and spine. COMPARISON: 04/01/2020 Multiple ultrasonographic images of the gravid uterus show a single living intrauterine gestation in variable positions. Doppler interrogation of the heart shows a heart rate of 143 beats per minute. The placenta is anterior and not low lying. The subjective amniotic fluid volume is within normal limits. The cervix measures 3 cm in length and is closed. BPD 5.7 cm = 23 weeks 4 day HC 21.2 cm = 23 weeks 2 day AC 20.2 cm = 24 weeks 6 day FL 4.6 cm = 25 weeks 2 day The estimated weight is 729 grams, which is at the 63rd percentile for a 24 week 1 day gestational age. Four-chamber heart, ventricular outflow tracts, and spine were well seen today and appear normal. This completes the anatomical screen. IMPRESSION: Single living intrauterine gestation, as described above, with an estimated gestational age of 23 weeks 6 days via composite criteria and an estimated date of delivery of 08/18/2020 by today's exam. No anomalies were detected.
== END ==
LOC: M WHC 15:00
PROVIDERS: ATTEND Advanced Practice Midwife
DX: O26.22 Pregnancy care for patient with recurrent pregnancy loss, second trimester (principal); Z3A.24 24 weeks gestation of pregnancy

== ENCOUNTER → 2020-05-20 | Outpatient (REF) | payer OTHER, MEDICAID ==
[2020-05-20 19:18] LABS: HEMOGLOBIN 11.4 g/dl (12.0-15.5); MEAN CORPUSCULAR HEMOGLOBIN 29.7 pg (27.0-33.0); MEAN CORPUSCULAR HGB CONC 31.7 g/dl (32.0-36.5); MEAN CORPUSCULAR VOLUME 93.8 fl (80.0-96.0); PLATELET COUNT, AUTOMATED 295 10^3/uL (150-450); RED BLOOD COUNT 3.84 10^6/uL (4.00-5.40)
== END ==
LOC: M PLALAB 13:55
PROVIDERS: ATTEND Advanced Practice Midwife
DX: O26.22 Pregnancy care for patient with recurrent pregnancy loss, second trimester (principal)

== ENCOUNTER → 2020-05-26 | Outpatient (CLI) | payer OTHER, MEDICAID | LOC: M LAB 08:12 | PROVIDERS: ATTEND Advanced Practice Midwife | DX: O99.810 Abnormal glucose complicating pregnancy (principal) ==

== ENCOUNTER → 2020-06-30 | Outpatient (CLI) | payer OTHER ==
--- NOTE | 2020-07-22 15:33 | REP ---
OBSTETRIC SONOGRAPHY: HISTORY: Supervision of . growth study. FINDINGS: Scanning through the gravid uterus demonstrates a viable single intrauterine gestation in a cephalic lie. The placenta is anterior grade 1 without evidence of previa or abruption. Amniotic fluid is subjectively normal. Closed cervical length is 4.2 cm viewed transabdominally. DIPAK is normal at 11.5 cm. BIOMETRY CHART: BPD 82 mm 33 weeks 1 day Head circumference 298 mm 33 weeks 1 day Abdominal circumference 291 mm 33 weeks 1 day Femur length 63 mm 33 weeks 1 day Humeral length 57 mm 33 weeks 1 day Estimated weight is 2113 grams, 35th percentile. IMPRESSION: Viable single intrauterine gestation at 33 weeks 1 day by today's composite criteria. There is evidence of appropriate interval growth. MTDD
== END ==
LOC: M WHC 14:44
PROVIDERS: ATTEND Obstetrics & Gynecology
DX: Z34.82 Encounter for supervision of other normal pregnancy, second trimester (principal)

== ENCOUNTER → 2020-07-15 | Outpatient (CLI) | payer OTHER ==
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
== END ==
LOC: M WHC 12:49
PROVIDERS: ATTEND Advanced Practice Midwife
DX: Z34.80 Encounter for supervision of other normal pregnancy, unspecified trimester (principal)

== ENCOUNTER → 2020-07-27 | Outpatient (REF) | payer OTHER | LOC: M SFHCWAGY 16:46 | PROVIDERS: ATTEND Advanced Practice Midwife | DX: Z34.83 Encounter for supervision of other normal pregnancy, third trimester (principal); Z3A.00 Weeks of gestation of pregnancy not specified ==

== ENCOUNTER 2020-08-16 15:44 | Inpatient (IN) | payer OTHER, MEDICAID ==
[~2020-08-16] VITALS: Ht 167.6 cm; Wt 140.9 kg
[2020-08-16 16:09] VITALS: BP 132/73
[2020-08-16] MEDS ORDERED: OXYTOCIN 30 UNITS IN 0.9% NaCl 500ML IV BAG (J2590) As Ordered ONE (17:51)
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
[2020-08-16 18:16] VITALS: BP 167/87
[2020-08-16 18:17] VITALS: BP 154/74
--- NOTE | 2020-08-16 18:19 | DNPDOC ---
[facility] Delivery Note Delivery Note DATE OF DELIVERY: 08/16/2020 TIME OF : 1800 GENDER: Male. APGARS: 9 and 9. WEIGHT:, 3850 grams or 8 pounds 8 ounces. LACERATIONS:. None ANESTHESIA: None. ESTIMATED BLOOD LOSS: 300ml COUNTS: 5 laparotomy sponges accounted for prior to after delivery. DELIVERY NOTE: On 08/16/2020 at 1800, Ms. Brock a 25-year-old 9 now para 2, had a spontaneous vaginal delivery of viable male , Apgars, 9 and 9 and weight 3850 g or 8 lbs. 8 oz. Head was delivered occiput anterior (OA) , followed by delivery of the shoulders and corpus. Infant was handed to mom with a good cry. Cord was clamped times two and was cut by support person under my direction. Placenta was then drained and delivered grossly intact. A premixed bag of 500 mL of normal saline with 30 units of Pitocin was then bolused along with uterine massage until the uterus was firm. On inspection, cervix, vagina, perineum was grossly intact and hemostatic. Mom and baby in recovery on stable condition. Mom decided to name her son, Magdalena RAMOSLOVE Zaman MD. Aug 16, 2020 18:19
[2020-08-16] MEDS ORDERED: OXYTOCIN DRIP 30 UNITS in IV 1 EA IV SCH (18:20)
[2020-08-16 18:30] VITALS: BP 154/74
[2020-08-16] MEDS ORDERED: IBUPROFEN 600MG TAB PO PRN (18:30)
[2020-08-16] MEDS ORDERED: RHOGAM 300 MCG (1500 IU) INJ (J2790) IM SCH (18:30)
[2020-08-16] MEDS ORDERED: MEASLES,MUMPS,RUBELLA VACCINE INJ (MMR-II) (90707) SC SCH (18:30)
[2020-08-16] MEDS ORDERED: ANUSOL HC CREAM 30GM TOP PRN (18:30)
[2020-08-16] MEDS ORDERED: ACETAMINOPHEN TAB 650MG DOSE (2X325MG) PO PRN (18:30)
[2020-08-16] MEDS ORDERED: ACETAMINOPHEN 500 MG TAB PO PRN (18:30)
[2020-08-16] MEDS ORDERED: METHYLERGONOVINE MALEATE 0.2 MG TAB PO PRN (18:30)
[2020-08-16] MEDS ORDERED: MOM 30ML SUSPENSION UDC PO PRN (18:30)
[2020-08-16] MEDS ORDERED: DOCUSATE SODIUM 100 MG CAP PO PRN (18:30)
[2020-08-16] MEDS ORDERED: DIBUCAINE 1% OINTMENT 30GM TOP PRN (18:30)
[2020-08-16 21:01] VITALS: BP 158/82
[2020-08-16] MEDS: IBUPROFEN 800 MG TAB PO PRN (21:16)
[2020-08-17 06:00] VITALS: BP 136/78
--- NOTE | 2020-08-17 07:41 | IPNPDOC ---
Progress Note Date of Service: Aug 17, 2020 Day#: 1 Progress Note SUBJECT: Doing well without complaints. Ambulating, voiding and pain is well-c ontrolled. Reports minimal lochia. OBJECTIVE: VITAL SIGNS: Within normal limits, afebrile. Alert and oriented times three. Abdomen: Fundus firm at U-2. Soft, NTTP. Ext: neg calf tenderness. ASSESSMENT: day #1 status post normal spontaneous vaginal delivery. Recovering in stable condition. PLAN: 1. Continue routine care 2. Discharge plans for tomorrow VS, I&O, 24H, Fishbone Vital Signs/I&O Vital Signs Date Time Temp Pulse Resp B/P (MAP) Pulse Ox O2 Delivery O2 Flow Rate FiO2 08/17/20 06:00 98.1 73 17 136/78 (97) 96 Room Air I&O- Last 24 Hours up to 6 AM 08/17/20 05:59 Intake Total 680 ml Output Total 700 ml Balance -20 ml Laboratory Data 24H LABS Laboratory Tests 2 08/16/20 17:26: Serology Scanned Report Hepatitis B Testing 08/16/20 18:57: Syphilis Serology NONREACTIVE LOVE WILLIAMSON MD. Aug 17, 2020 07:41
[2020-08-17] MEDS: PRENATAL VITAMINS CHEWABLE TABLET PO SCH (08:06)
[2020-08-17] MEDS: SERTRALINE HCL 50 MG TAB PO SCH (09:58)
[2020-08-17] MEDS: IBUPROFEN 800 MG TAB PO PRN (17:28)
[2020-08-17 18:00] VITALS: BP 140/73
[2020-08-18 06:02] VITALS: BP 138/86
[2020-08-18] MEDS: PRENATAL VITAMINS CHEWABLE TABLET PO SCH (07:54)
[2020-08-18] MEDS: SERTRALINE HCL 50 MG TAB PO SCH (07:54)
== END 2020-08-18 09:55 | disposition home or self-care (01) | DRG 560 ==
LOC: M LDO 15:44 → M LDI 17:18 → M OBS 19:57
PROVIDERS: ADMIT Obstetrics & Gynecology; ATTEND Obstetrics & Gynecology
PROC: 10E0XZZ Delivery of Products of Conception, External Approach (ICD-10-PCS; principal; 2020-08-16)
DX: O80 Encounter for full-term uncomplicated delivery (principal); Z37.0 Single live birth; Z3A.40 40 weeks gestation of pregnancy

== ENCOUNTER → 2021-01-03 | Outpatient (REF) | payer OTHER, MEDICAID ==
[2021-01-04 12:19] LABS: CHLAMYDIA DNA AMPLIFICATION NEGATIVE (NEGATIVE); GC DNA AMPLIFICATION NEGATIVE (NEGATIVE)
== END ==
LOC: M SFHCWAGY 09:48
PROVIDERS: ATTEND Obstetrics & Gynecology
DX: Z91.89 Other specified personal risk factors, not elsewhere classified (principal); Z12.4 Encounter for screening for malignant neoplasm of cervix

== ENCOUNTER 2021-02-21 15:02 | Outpatient (RCR) | payer OTHER | END 2021-02-22 | LOC: M PT 15:02 | PROVIDERS: ATTEND Physician Assistant | DX: M54.5 Low back pain (principal) ==